=== PATIENT | male | born 2000 | race Caucasian/White ===

== ENCOUNTER 2020-02-05 13:15 | Emergency (ER) | payer MEDICAID ==
[~2020-02-05] VITALS: Ht 170.2 cm; Wt 59.4 kg
[2020-02-05 13:34] VITALS: BP 151/91; Ht 170.2 cm; Wt 59.4 kg
[2020-02-05 15:15] LABS: BASOPHIL % 0.5 % (0-2); PLATELET COUNT 252 x10^3mcL (130-400); RED CELL DISTRIBUTION WIDTH 12.8 % (11.5-14.5)
[2020-02-05 15:26] LABS: CALCIUM 8.9 mg/dL (8.5-10.1); CARBON DIOXIDE 26.2 mmol/L (21-32); CHLORIDE SERUM 101 mmol/L (98-107); CREATININE SERUM 0.7 mg/dL (0.7-1.3); GFR1 > 60 mL/min; GLUCOSE SERUM 99 mg/dL (74-106); POTASSIUM SERUM 3.6 mmol/L (3.5-5.1); SODIUM SERUM 137 mmol/L (136-145)
[2020-02-05 15:32] LABS: ALBUMIN 4.4 g/dL (3.4-5.0); ALKALINE PHOSPHATASE 75 U/L (46-116); ALT/SGPT 14 U/L (16-63); AST/SGOT 18 U/L (15-37); LIPASE 98 IU/L (73-393)
== END 2020-02-05 16:23 | disposition home or self-care (01) ==
LOC: ED 13:15
PROVIDERS: Student in an Organized Health Care Education/Training Program
DX: R10.32 Left lower quadrant pain (principal); R11.10 Vomiting, unspecified; M79.10 Myalgia, unspecified site; R50.9 Fever, unspecified; F12.10 Cannabis abuse, uncomplicated
CPT/HCPCS: J2405